=== PATIENT | female | born 1960 | race Caucasian/White ===

== ENCOUNTER 2016-03-29 09:40 | Outpatient (CLI) | payer MEDICARE, OTHER ==
[2013-12-02 09:34] VITALS: BP 148/62
[2016-03-29 10:43] LABS: BASOPHILS % 0.6 (0.0-1.5); EOSINOPHILS % 3.6 % (0.0-6.8); MEAN CORPUSCULAR HEMOGLOBIN 32.6 pg (28.0-34.0); MONOCYTES # 0.3 # k/uL (0.0-0.9); MONOCYTES % 3.8 % (0.0-11.0); NEUTROPHILS # 5.2 # k/uL (1.4-7.7)
--- NOTE | 2016-03-29 11:17 | Diagnostic Imaging Report ---
[facility] [address] [facility] [place], [place]. [address] Report Submission Date: Mar 29, 2016 10:57:24 AM ASSOCIATE WEB DEVELOPER Patient Study Name: RUPESH TORO Date: Mar 29, 2016 10:42:10 AM ASSOCIATE WEB DEVELOPER Modality Type: CR Gender: F Description: CHEST : 58 Institution: [facility] Physician: MEGAN CASTILLO 2 views of the chest History: DIFFICULTY BREATHING X 3 WEEKS. SMOKER FOR 40 YEARS Findings: No comparison studies Heart is normal in size. Aortic calcification is present. Lungs are hyperexpanded. Basilar predominant prominent interstitial lung markings are seen. Opacity noted in the posterior lung field infrahilar region on the lateral view , unclear if of vascular origin, no pleural effusion or pneumothorax. No acute osseous pathology, multilevel thoracic spine degenerative changes Impression: 1. Emphysema. Basilar predominant chronic interstitial lung changes. No pleural effusion 2. Opacity noted in the posterior lung field infrahilar region on the lateral view, unclear if related to pulmonary vessels versus air space opacity. Recommend attention on followup. Cross-sectional imaging may be done. Electronically signed on Mar 29, 2016 10:57:24 AM ASSOCIATE WEB DEVELOPER by: Mary KANG
== END 2016-03-29 09:42 ==
LOC: RT 09:40
PROVIDERS: ATTEND Family Medicine
DX: R06.02 Shortness of breath (principal); F17.210 Nicotine dependence, cigarettes, uncomplicated; E78.2 Mixed hyperlipidemia; E03.9 Hypothyroidism, unspecified; R07.2 Precordial pain
CPT/HCPCS: 36415; 71020; 80061; 84443; 85025; 94060

== ENCOUNTER 2016-04-01 09:59 | Outpatient (CLI) | payer MEDICARE, OTHER ==
[2013-12-02 09:34] VITALS: BP 148/62
[2016-04-01 10:33] LABS: eGFR (African) > 60; eGFR (Non-African) > 60
--- NOTE | 2016-04-01 18:33 | Diagnostic Imaging Report ---
[facility] [address] [facility].[address] [address] Report Submission Date: Apr 01, 2016 4:07:57 PM HANDLE ATTACHER Patient Study Name: RUPESH TORO Date: Apr 01, 2016 11:00:31 AM HANDLE ATTACHER Modality Type: CT\SR Gender: F Description: CT CHEST W/ CONTRAST : 58 Institution: [facility] Physician: MEGAN CASTILLO MD CT chest with contrast. History: Abnormal chest radiograph followup. Technique: Transaxial computed tomography images of the chest were obtained following the uneventful administration intravenous contrast according to standard protocol. Findings: The heart size is normal. The enhanced vascular structures are normal in course and caliber. There is no significant adenopathy identified. Minimal apical blebs are present. Otherwise the lungs are clear. There is no pleural effusion or pneumothorax. No suspicious pulmonary nodule is identified. Limited views the upper abdomen demonstrate cholecystectomy changes. Degenerative are present within the thoracic spine with chronic wedging deformity at L1. There is fusion of the posterior spinal processes in the lower thoracic spine into the upper lumbar spine. Impression: 1. No acute pulmanry disease. 2. No suspicious pulmonary nodule. 3. Minimal apical blebs noted. 4. Chronic wedge deformity at L1. Electronically signed on Apr 01, 2016 4:07:57 PM HANDLE ATTACHER by: Matheus KANG
== END 2016-04-01 10:00 ==
LOC: RAD 09:59
PROVIDERS: ATTEND Family Medicine
DX: R91.8 Other nonspecific abnormal finding of lung field (principal)
CPT/HCPCS: 36415; 71260; 82565

== ENCOUNTER 2016-05-24 10:58 | Outpatient (CLI) | payer MEDICARE, OTHER ==
[2013-12-02 09:34] VITALS: BP 148/62
[2016-05-24 12:19] LABS: ABG BASE EXCESS 6.4 (-2 - +2); ABG PH 7.45 (7.35-7.45)
--- NOTE | 2016-05-24 16:03 | CONSULTATION REPORT ---
PULMONARY CONSULTATION NOTE REFERRING PHYSICIAN: Shanice Gardiner MD CONSULTING PHYSICIAN: Sacha Tiwari MD REASON FOR CONSULT: 1. Shortness of breath. 2. Chronic obstructive pulmonary disease (COPD). PROBLEM LIST: 1. Moderate obstructive lung disease with significant chronic obstructive pulmonary disease (COPD) and a significant history of tobacco abuse with FEV1 of 1.9 L, which is 71% predicted. 2. Chronic hypoxic hypercapnic respiratory failure with pCO2 of 45 and pO2 of 60 on today's blood gas. 3. Obstructive sleep apnea, on home CPAP, but poor compliance. 4. Ongoing tobacco abuse. 5. Deconditioning with significant spinal disease and previous multiple surgeries. HISTORY OF PRESENT ILLNESS: Jodie is a pleasant 55-year-old lady who has ongoing tobacco abuse with more than a [id number] history. She has had increasing shortness of breath, chest tightness and a worsening condition over the last few weeks. Dr. Gardiner diagnosed her with significant COPD. A CAT scan confirmed significant emphysema. She continues to smoke around 1 pack per day. She does have excessive shortness of breath when walking or lying down. She does have palpitations. She does have a productive cough of yellow sputum with an episode of wheezing and some episode of pleurisy but she denies any coughing up of blood and no active chest pain. She does have daytime sleepiness, episode of sweats, and vision changes, and she gets hoarse with episodes of wheezing , sinus drainage, muscle weakness, and dry skin. She stopped using her CPAP in the last few weeks and she has had the CPAP since 2009 and usually she gets her studies done at [facility]. PAST MEDICAL HISTORY: 1. Osteoarthritis. 2. Hypertension. 3. COPD. 4. Neuropathy. 5. Depression. MEDICATIONS: 1. Flovent 2 puffs twice a day. 2. Celebrex 200 mg once a day. 3. Inderal 180 mg once a day. 4. Lyrica 100 mg twice a day. 5. Amitriptyline 25 mg 3 times a day. 6. Zoloft once a day. 7. Lasix p.r.n. SOCIAL HISTORY: Patient is on disability regarding her back issues. She does continue to smoke 1 pack per day. She is not . She has had no significant chemical exposure before. FAMILY HISTORY: No family history of lung disease but there is a family history of heart disease in her brother and sister. IMMUNIZATIONS: She did have a Pneumonia shot back in April 2016. REVIEW OF SYSTEMS: A total 12-point review of systems was done and positive only for that listed above in the history of present illness. PHYSICAL EXAMINATION: Vital Signs: Oxygen saturation is 90% on room air, T: 97.4, R: 20, heart rate 83, BP: 147/98. General: She is alert, awake, and oriented. She is chronically ill appearing. She has a painful gait related to her spinal disease. Neck: Her trachea is midline. Lungs: Poor entry bilaterally with a prolonged expiratory phase with use of accessory muscles. Heart: Regular rate and rhythm. No extra sounds. Abdomen: Soft and nontender. Neurologic Exam: Grossly intact. BLOOD WORKUP: ABG showed a pH of 7.45, pCO2 of 45, pO2 of 60 and bicarb of 31. Her pulmonary function test showed FEV1 of 1.9 L which is 71% predicted and with a second attempt, it was down to 68%, which is 1.87. Confirmed with the obstructive lung disease. RADIOLOGY: CT scan of the chest showed no lung nodules significant severe emphysema. ASSESSMENT: 1. Moderate obstructive lung disease with significant chronic obstructive pulmonary disease (COPD) and a significant history of tobacco abuse with FEV1 of 1.9 L, which is 71% predicted. 2. Chronic hypoxic hypercapnic respiratory failure with pCO2 of 45 and pO2 of 60 on today's blood gas. 3. Obstructive sleep apnea, on home CPAP, but poor compliance. 4. Ongoing tobacco abuse. 5. Deconditioning with significant spinal disease and previous multiple surgeries. PLAN: For the patient's moderate to severe COPD and chronic hypoxic hypercapnic respiratory failure, I am going to start the patient on Spiriva 2.5 mcg two puffs once a day and Breo 200 mcg one puff once a day. Discontinue Flovent for now. I will do a home oxygen evaluation with a nocturnal study while patient off CPAP and request a repeat CPAP titration study from [facility]. I had an excessive discussion with the patient about the importance for her to quit smoking and she is going to follow up with me in the Pulmonary Clinic in one month. The patient's condition is serious with this advanced lung disease with ongoing tobacco abuse and significant sleep apnea and she is not compliant with her CPAP which I advised her to go back to the CPAP until we get the re- titration study and at least for now, we are going to use oxygen at night at 2 liters. Thank you, Dr. Gardiner, for the consultation. I will continue to follow up. cc: Dr. Shanice KANG
== END 2016-05-24 11:00 ==
LOC: PULMONARY 10:58
PROVIDERS: ATTEND Internal Medicine Critical Care Medicine
DX: J44.9 Chronic obstructive pulmonary disease, unspecified (principal); I10 Essential (primary) hypertension; F17.210 Nicotine dependence, cigarettes, uncomplicated
CPT/HCPCS: 36600; 82803; 94761; 99214; G0463

== ENCOUNTER 2016-06-17 08:08 | Outpatient (CLI) | payer MEDICARE, OTHER ==
[2013-12-02 09:34] VITALS: BP 148/62
--- NOTE | 2016-06-20 13:42 | OP Clinic Progress Note ---
REFERRING PHYSICIAN: Dr. Shanice Gardiner PROBLEM LIST: 1. Moderate to severe obstructive lung disease, FEV1 of 1.9 liters. 2. Chronic hypoxic hypercapnic respiratory failure. 3. Obstructive sleep apnea, on home CPAP with poor compliance. 4. Ongoing tobacco abuse. SUBJECTIVE: Patient was seen and examined in the clinic today. She is feeling better than at her last visit. She reports that she did quit smoking since her last visit and feeling much better in general. She is not using her home CPAP yet and using her nebulizer and breathing better in general and using Spiriva and Breo on a regular basis. Her past medical history, family history, and social history were reviewed in the chart with no significant changes. Her oxygen saturation study from May 26, 2016, showed hypoxia at night with oxygen saturation less than 88% was more than 5 minutes. PHYSICAL EXAMINATION: VITAL SIGNS: Weight: 226. T: 97.6, R: 20, heart rate is 65, oxygen saturation is 95%, BP: 134/62. GENERAL: Patient is alert, awake, and oriented and chronically ill-appearing. LUNGS: Lungs continue to have poor air entry bilaterally but no wheezing and no crackles. No use of accessory muscles. HEART: Regular rate and rhythm. ABDOMEN: Soft. No tenderness. NEUROLOGIC EXAM: Grossly intact. SKIN: Unremarkable. ASSESSMENT: 1. Moderate to severe obstructive lung disease, FEV1 of 1.9 liters. 2. Chronic hypoxic hypercapnic respiratory failure. 3. Obstructive sleep apnea, on home CPAP with poor compliance. 4. Ongoing tobacco abuse. PLAN: Patient does have chronic hypoxic respiratory failure. She would benefit from oxygen as needed to keep her saturations more than 88% and to use oxygen at night. The problem is that she is on a CPAP and we are going to have to request another home CPAP titration with oxygen to be done at the [facility]. I did send the request again to the [facility] and hopefully , it will be done soon. Otherwise, she did quit smoking. I highly recommend continuing Breo and Spiriva for now and to consider pulmonary rehab. Patient's prognosis is guarded. Pulmonary will continue to follow up within the next 3 months. cc: Dr. Shanice KANG
== END 2016-06-17 08:10 ==
LOC: PULMONARY 08:08
PROVIDERS: ATTEND Internal Medicine Critical Care Medicine
DX: J44.9 Chronic obstructive pulmonary disease, unspecified (principal); J96.12 Chronic respiratory failure with hypercapnia; F17.210 Nicotine dependence, cigarettes, uncomplicated; G47.33 Obstructive sleep apnea (adult) (pediatric)
CPT/HCPCS: 99214; G0463

== ENCOUNTER 2016-12-11 20:41 | Emergency (ER) | payer MEDICARE, OTHER ==
[2016-12-11] MEDS ORDERED: IPRATROPIUM/ALBUTEROL SULFATE 3 ML AMPUL.NEB NEB ONE (21:01)
--- NOTE | 2016-12-11 21:01 | ED Physician Documentation ---
General Adult - HISTORIAN Historian: patient - HPI Stated Complaint: wheezing Chief Complaint: General Adult Onset: days ago Timing: still present Severity: moderate Further Comments: yes (Pt is a 56 yo female with COPD, dx'd about 6 mos ago. Pt is on Spiriva, Albuterol and Breo. Pt was seen in clinic 4 days ago and was rx'd prednisone 20 mg for 5 days. Pt continues to feel sob/wheezy.) - ROS CONST: no problems EYES/ENT: none CVS/RESP: shortness of breath, cough GI/: none MS/SKIN/LYMPH: none - PAST HX Past History: hypertension, other (Depression, GERD, HLD) Allergies/Adverse Reactions: Allergies Allergy/AdvReac Type Severity Reaction Status Date / Time erythromycin base Allergy Unknown Verified 12/11/16 21:40 [From E-Mycin] steroids AdvReac Severe Shortness Uncoded 12/11/16 21:40 of Breath - SOCIAL HX Smoking History: quit greater than 1 year - FAMILY HX Family History: No - VITAL SIGNS Vital Signs: Vital Signs Temp Pulse Resp BP Pulse Ox 148/62 12/02/13 09:33 - REVIEWED ASSESSMENTS Nursing Assessment Reviewed: Yes Vitals Reviewed: Yes Progress - Progress Progress: Duoneb HFN x 1 Pulmicort HFN x 1 Tylenol 650 mg po (for mild headache) improved, sx resolved Rx Flovent 110 mcg. 2 puffs bid x 3 days; then 1 puff bid x 3 days; then 1 puff qd x 3 days; then stop f/u pcp. General Adult Physical Exam - PHYSICAL EXAM GENERAL APPEARANCE: moderate distress EENT: pharynx normal NECK: normal inspection, supple RESPIRATORY: wheezes CVS: reg rate & rhythm, heart sounds normal ABDOMEN: soft, no organomegaly, normal bowel sounds BACK: normal inspection SKIN: warm/dry, normal color EXTREMITIES: non-tender, normal range of motion, no edema NEURO: oriented X3, motor nml, sensation nml Discharge Clincal Impression: wheezing Referrals: Shanice Gardiner MD [Primary Care Provider] - Condition: Good Disposition: 01 HOME, SELF-CARE Decision to Admit: NO Decision Time: 22:18
[2016-12-11 21:35] VITALS: BP 168/76
[2016-12-11] MEDS ORDERED: BUDESONIDE 0.5MG/2ML AMPUL.NEB NEB ONE (21:48)
[2016-12-11] MEDS ORDERED: BUDESONIDE 0.5MG/2ML AMPUL.NEB NEB SCH (22:00)
[2016-12-11] MEDS ORDERED: ACETAMINOPHEN 325 MG TABLET ONE (22:04)
--- NOTE | 2016-12-12 07:03 | Diagnostic Imaging Report ---
[place] [facility] [address] [facility].[address] [address] Report Submission Date: Dec 11, 2016 9:45:08 PM CDT Patient Study Name: RUPESH TORO Date: Dec 11, 2016 9:26:52 PM CDT Modality Type: CR Gender: F Description: CHEST : 58 Institution: [facility] Physician: D[place]CH [place] Chest 2 views History: Shortness of breath and cough for 1 week Findings: The distal right clavicle has been resected. A severe compression deformity at the thoracolumbar junction produces focal kyphosis and is unchanged since the March 29, 2016 exam. The lungs are mildly hyperinflated without infiltrate or pleural effusion. Heart size and pulmonary vascularity are normal. Impression: 1. Hyperinflation. 2. Chronic thoracolumbar junction compression deformity. 3. Distal right clavicle resection. 4. No change since the prior exam. Electronically signed on Dec 11, 2016 9:45:08 PM CDT by: Dread KANG
== END 2016-12-11 22:30 | disposition home or self-care (01) ==
LOC: ED 20:41
DX: R06.2 Wheezing (principal)
CPT/HCPCS: J7626 ×2; 71020; 99283

== ENCOUNTER 2017-03-28 12:40 | Emergency (ER) | payer MEDICARE, OTHER ==
--- NOTE | 2017-03-28 12:57 | ED Physician Documentation ---
General Adult - HISTORIAN Historian: patient - HPI Chief Complaint: General Adult Additional Information: Patient has some URI symptoms, nasal drainage, cough. Over the last several days symptoms have been getting worse, cough is productive of some yellow to clear phlegm. Hears a gurgling in the chest at times. Has been having some left anterior chest pain, no precipitating cause. Worse with coughing and taking a deep breath. Has been having some increase SOB. Has been using inhaler which helps some. Has a history of COD. No CAD. Has HTN. Denies smoking at this time. Onset: days ago (5 days) Timing: still present, worse - ROS CONST: denies: fever, chills - PAST HX Past History: COPD, other (fibromyalgia, HTN) Surgeries/Procedures: cholecystectomy, hysterectomy, other (lower back surgery, appendectomy) Immunizations: influenza, pneumovax Allergies/Adverse Reactions: Allergies Allergy/AdvReac Type Severity Reaction Status Date / Time erythromycin base Allergy Unknown Verified 03/28/17 13:07 [From E-Mycin] steroids AdvReac Severe Shortness Uncoded 03/28/17 13:07 of Breath Home Medications: Ambulatory Orders Medication Instructions Recorded Benzonatate [Tessalon] 100 mg PO TID #20 capsule 03/28/17 Doxycycline Monohydrate [Monodox] 100 mg PO BID #14 capsule 03/28/17 - SOCIAL HX Smoking History: non-smoker, quit less than 1 year Alcohol Use: none Drug Use: none - FAMILY HX Family History: Yes - VITAL SIGNS Vital Signs: Vital Signs Temp Pulse Resp BP Pulse Ox 168/76 12/11/16 22:30 Progress - Progress Progress: 13:56 Patient still complains of some pain in the left chest with deep breathing and coughing. 14:29 Patient is feeling a little better. Continues to maintain SAO2 > 95% on RA. BP has been elevated some but is improved. 15:35 Neb treatment helped some. Patient is feeling some better. No chest pain. - EKG/XRAY/CT EKG: NSR, no ST T wave changes ED Results Lab/Radiology - Radiology Radiology Impressions: Examination: PA and lateral chest. History: Evaluate lung chow. Comparison exam: 11 December 2016 Findings: PA lateral chest demonstrate a normal cardiac and mediastinal silhouette. Vascular calcifications involving the aortic arch. No focal infiltrate. No blunting of the costophrenic margins. lower thoracic anterior compression: stable. Impression: No acute appearing pulmonary process. Examination: CT chest pulmonary embolism History: Chest discomfort. Comparison exam: Plain film dated [address] scan dated 01 April 2016 Technique: CT chest pulmonic pulmonary embolism protocol. Findings: No evidence for luminal filling defect within the main pulmonary arteries to the 3rd order branch vessels bilaterally. Thoracic aorta without aneurysmal dilation. No evidence for dissection flap. Mild peripheral atherosclerotic disease and mural thickening. Lungs demonstrate dependent atelectasis bilaterally. No evidence for posterior pleural effusion or thickening. Scattered emphysematous changes. Groundglass interstitial pattern. No mediastinal or lavonne mass or pathologic adenopathy. Cardiac silhouette not enlarged. No pericardial effusion. Osseous structures demonstrate degenerative changes and old lower thoracic anterior vertebral body compression. Lower neck structures, axilla regions, and upper abdominal organs are without gross irregularity. Impression: No evidence for pulmonary embolism by CT criteria. No evidence for thoracic aortic dissection or abnormality. General Adult Physical Exam - PHYSICAL EXAM GENERAL APPEARANCE: mild distress EENT: eye inspection normal, ENT inspection normal, pharynx normal, no signs of dehydration NECK: normal inspection, thyroid normal, supple. No: lymphadenopathy, stiff neck RESPIRATORY: no resp distress, breath sounds normal. No: chest non-tender ( some mild anterior left chest wall tenderness with palpation.), wheezes, rales, rhonchi CVS: reg rate & rhythm, heart sounds normal, equal pulses, no murmur, no gallop ABDOMEN: soft, no organomegaly, normal bowel sounds, no abdominal bruit, no distension SKIN: warm/dry, normal color EXTREMITIES: non-tender, no edema NEURO: oriented X3, CN's nml as tested, motor nml, sensation nml, mood/affect nml, cognition normal Discharge Clincal Impression: Bronchitis, Pleurisy without effusion, Essential hypertension Referrals: Shanice Gardiner MD [Primary Care Provider] - 2 Days Additional Instructions: Take doxycycline 100mg twice a day for seven days. Take tessalon Perles as needed for cough. Start taking 160mg of your atenolol once again. Make an appointment to see Dr Gardiner in 1-2 weeks to have your blood pressure rechecked. Take Alevel 220mg tablets, 2 tablets twice a day with food for chest wall pain. Condition: Stable Disposition: 01 HOME, SELF-CARE Decision to Admit: NO Date of Decison to Admit: 03/28/17 Decision Time: 15:23
[2017-03-28 13:38] LABS: BASOPHILS % 1.1 (0.0-1.5); EOSINOPHILS % 2.7 % (0.0-6.8); MEAN CORPUSCULAR VOLUME 93.2 fl (80.0-100.0); MONOCYTES % 5.4 % (0.0-11.0); NEUTROPHILS # 4.8 # k/uL (1.4-7.7)
--- NOTE | 2017-03-28 13:46 | Diagnostic Imaging Report ---
CHILO RUIZ [facility] [address] [facility] [address] [address] Report Submission Date: Mar 28, 2017 1:27:02 PM SUPERVISOR HIDE HOUSE Patient Study Name: RUPESH TORO Date: Mar 28, 2017 1:08:35 PM SUPERVISOR HIDE HOUSE Modality Type: CR Gender: F Description: CHEST : 58 Institution: [facility] Physician: CHILO RUIZ Examination: PA and lateral chest. History: Evaluate lung chow. Comparison exam: 11 December 2016 Findings: PA lateral chest demonstrate a normal cardiac and mediastinal silhouette. Vascular calcifications involving the aortic arch. No focal infiltrate. No blunting of the costophrenic margins. lower thoracic anterior compression: stable. Impression: No acute appearing pulmonary process. Electronically signed on Mar 28, 2017 1:27:02 PM SUPERVISOR HIDE HOUSE by: Mitch KANG
[2017-03-28 14:00] LABS: eGFR (African) > 60; eGFR (Non-African) > 60
[2017-03-28] MEDS ORDERED: IPRATROPIUM/ALBUTEROL SULFATE 3 ML AMPUL.NEB NEB ONE (14:21)
--- NOTE | 2017-03-28 15:01 | Diagnostic Imaging Report ---
CHILO RUIZ [facility] [address] [facility] [address] [place] [address]. [id number] Report Submission Date: Mar 28, 2017 2:57:[address] REPORTER Patient Study Name: RUPESH TORO Date: Mar 28, 2017 2:28:[address] REPORTER Modality Type: CT\SR Gender: F Description: CT ANGIOGRAPHY CHEST 7 : 58 Institution: [facility] Physician: CHILO RUIZ Examination: CT chest pulmonary embolism History: Chest discomfort. Comparison exam: Plain film dated [address] scan dated 01 April 2016 Technique: CT chest pulmonic pulmonary embolism protocol. Findings: No evidence for luminal filling defect within the main pulmonary arteries to the 3rd order branch vessels bilaterally. Thoracic aorta without aneurysmal dilation. No evidence for dissection flap. Mild peripheral atherosclerotic disease and mural thickening. Lungs demonstrate dependent atelectasis bilaterally. No evidence for posterior pleural effusion or thickening. Scattered emphysematous changes. Groundglass interstitial pattern. No mediastinal or lavonne mass or pathologic adenopathy. Cardiac silhouette not enlarged. No pericardial effusion. Osseous structures demonstrate degenerative changes and old lower thoracic anterior vertebral body compression. Lower neck structures, axilla regions, and upper abdominal organs are without gross irregularity. Impression: No evidence for pulmonary embolism by CT criteria. No evidence for thoracic aortic dissection or abnormality. Groundglass interstitial pattern without effusion. Electronically signed on Mar 28, 2017 2:57:[address] REPORTER by: Mitch KANG
[2017-03-28 15:42] VITALS: BP 183/100
[2017-03-29 07:26] LABS: APPEARANCE,URINE CLEAR (CLEAR); COLOR,URINE YELLOW (YELLOW); OCCULT BLOOD,URINE NEGATIVE (NEGATIVE); UROBILINOGEN URINE 0.2 Eu (0.2-1.0)
== END 2017-03-28 15:41 | disposition home or self-care (01) ==
LOC: ED 12:40
DX: J40 Bronchitis, not specified as acute or chronic (principal); R09.1 Pleurisy; J44.9 Chronic obstructive pulmonary disease, unspecified; I10 Essential (primary) hypertension
CPT/HCPCS: 71020; 71275; 80053; 81002; 84484; 85025; 85379; 94640; 99282; 99283; Q9967; S1016

== ENCOUNTER 2017-06-29 09:50 | Emergency (ER) | payer MEDICARE, OTHER ==
[2017-06-29] MEDS ORDERED: ASPIRIN 81 MG CHEW TAB PO ONE (10:19)
[2017-06-29] MEDS ORDERED: NITROGLYCERIN 0.4 MG TAB.SUBL SL ONE (10:22)
--- NOTE | 2017-06-29 10:22 | ED Physician Documentation ---
General Adult - HISTORIAN Historian: patient - HPI Stated Complaint: s/p mild chest pain radiating up into neck/back Chief Complaint: General Adult Onset: hours Timing: still present Severity: moderate Further Comments: yes (Pt is a 56 yo female with chest pain that occurred this morning and lasted 45 min. Pain was 7/10 in severity. Pt has COPD and did not have any increased sob. No n/v. Pain radiated to neck and later to L arm and L side of chest. Pt has hx GERD. Pt took TUMS w/o relief.) - ROS CONST: no problems EYES/ENT: none CVS/RESP: chest pain, shortness of breath (hx COPD, not worse than usual.) GI/: none MS/SKIN/LYMPH: none - PAST HX Past History: COPD, other (YUDI, OA, HTN, Neuropathy, Depression, HLD, GERD, fibromyalgia.) Surgeries/Procedures: cholecystectomy, hysterectomy, other (back surgery) Allergies/Adverse Reactions: Allergies Allergy/AdvReac Type Severity Reaction Status Date / Time erythromycin base Allergy Unknown Verified 06/29/17 10:20 [From E-Mycin] steroids AdvReac Severe Shortness Uncoded 06/29/17 10:20 of Breath Home Medications: Ambulatory Orders Medication Instructions Recorded Benzonatate [Tessalon] 100 mg PO TID #20 capsule 03/28/17 Doxycycline Monohydrate [Monodox] 100 mg PO BID #14 capsule 03/28/17 - SOCIAL HX Smoking History: cigarettes (e-cigarettes) - FAMILY HX Family History: No - VITAL SIGNS Vital Signs: Vital Signs Temp Pulse Resp BP Pulse Ox 98.2 F 61 16 147/67 98 06/29/17 09:50 06/29/17 09:50 06/29/17 09:50 06/29/17 09:50 06/29/17 09:50 - REVIEWED ASSESSMENTS Nursing Assessment Reviewed: Yes Vitals Reviewed: Yes Progress - Progress Progress: ASA 325 mg po Nitro 0.4 mg SL no change GI cocktail no change Pain later resolved. Planned to admit pt to r/o [place]. Pt initially agreed, then decided that she needed to leave and signed out AMA. - EKG/XRAY/CT EKG: NSR (HR=61; non-specific ST & T wave abnormality.) XRAY: chest (neg) ED Results Lab/Radiology - Orders Orders: ED Orders Category Date Time Status Continuous EKG monitoring Q30M Care 06/29/17 10:19 Active Continuous Pulse Oximetry Q30M Care 06/29/17 10:[address] IV Lock 1T Care 06/29/17 10:19 Active CHEST 1VIEW [RAD] Stat Exams 06/29/17 Ordered CBC/PLATELET/DIFF Routine Lab 06/29/17 10:19 Ordered CKMB Stat Lab 06/29/17 Ordered CMP Routine Lab 06/29/17 10:19 Ordered CREATINE KINASE Routine Lab 06/29/17 10:19 Ordered D DIMER Stat Lab 06/29/17 Ordered NT-proBNP Stat Lab 06/29/17 Ordered TROPONIN I (cTnI) Stat Lab 06/29/17 Ordered Aspirin Med 06/29/17 10:19 Discontinued 324 mg PO NOW ONE Oxygen Daily Oxygen 06/29/17 10:30 Ordered EKG WITH COMPARISON Stat Ther 06/29/17 10:19 Ordered General Adult Physical Exam - PHYSICAL EXAM GENERAL APPEARANCE: mild distress EENT: pharynx normal NECK: normal inspection, supple RESPIRATORY: no resp distress, chest non-tender, breath sounds normal CVS: reg rate & rhythm, heart sounds normal, no murmur ABDOMEN: soft, no organomegaly, normal bowel sounds BACK: normal inspection, no CVA tenderness SKIN: warm/dry, normal color EXTREMITIES: non-tender, normal range of motion, no evidence of injury, no edema NEURO: oriented X3, motor nml, sensation nml Discharge Clincal Impression: chest pain Referrals: Shanice Gardiner MD [Primary Care Provider] - Condition: Fair Disposition: 07 AGAINST MEDICAL ADVICE Decision to Admit: NO Decision Time: 13:13
[2017-06-29 10:40] LABS: BASOPHILS % 0.6 (0.0-1.5); EOSINOPHILS % 2.2 % (0.0-6.8); MEAN CORPUSCULAR HEMOGLOBIN 31.9 pg (28.0-34.0); MEAN CORPUSCULAR VOLUME 93.2 fl (80.0-100.0); MONOCYTES % 4.6 % (0.0-11.0); NEUTROPHILS # 4.5 # k/uL (1.4-7.7)
[2017-06-29] MEDS ORDERED: MAGNESIUM, ALUMINUM HYDROXIDE 30 ML UDC PO ONE (10:52)
[2017-06-29] MEDS ORDERED: Lidocaine 2%Visc 15ml 20 MG/ML UDC ONE (10:52)
[2017-06-29] MEDS ORDERED: MAG HYDROX/ALUMINUM HYD/SIMETH 30 ML, Lidocaine 2%Visc 15ml 20 MG, PHENobarb/HYOSCY/ATR... PO ONE ×3 (10:53)
[2017-06-29 10:56] LABS: eGFR (African) > 60; eGFR (Non-African) > 60
[2017-06-29 14:06] VITALS: BP 146/73
--- NOTE | 2017-06-30 07:11 | Diagnostic Imaging Report ---
[place] [facility] [address] [facility] [address] [address] Report Submission Date: Jun 29, 2017 10:47:13 AM CDT Patient Study Name: RUPESH TORO Date: Jun 29, 2017 10:33:00 AM CDT Modality Type: DX Gender: F Description: CHEST : 58 Institution: [facility] Physician: [place] Examination: Portable chest History: Evaluate lungs. PCXR, CHEST PAIN AND PRESSURE TODAY (Hx) Comparison exam: 11 December 2016 Findings: Single view of the chest demonstrates a normal cardiac and mediastinal silhouette. Vascular calcifications involving the aortic arch. Lung chow without focal infiltrate. No blunting of the costophrenic margins. Articular degenerative changes. Impression: No acute pulmonary process. Electronically signed on Jun 29, 2017 10:47:13 AM CDT by: Mitch KANG
== END 2017-06-29 13:00 | disposition left against medical advice (07) ==
LOC: ED 09:50
DX: R07.9 Chest pain, unspecified (principal)
CPT/HCPCS: 71045; 80053; 82550; 82553; 83880; 84484; 85025; 85379; A9270; 99283; S1016

== ENCOUNTER 2017-11-15 11:13 | Outpatient (CLI) | payer MEDICARE, OTHER | END 2017-11-15 11:14 | LOC: LABRHC 11:13 | PROVIDERS: ATTEND Family Medicine | DX: R39.198 Other difficulties with micturition (principal) | CPT/HCPCS: 87086 ==

== ENCOUNTER 2017-12-04 10:49 | Day surgery (SDC) | payer MEDICARE, OTHER ==
[~2017-12-04 10:49] MED LIST: LACTATED RINGERS 1,000 ML IV.SOLN IV ONE; PROPOFOL 500 MG/50 ML VIAL IV ONE; SALINE FLUSH 10 ML DISP.SYRIN IVF ONE
--- NOTE | 2017-12-05 11:59 | GI Report ---
REFERRING PHYSICIAN: Dr. Shanice Gardiner JOB SUPERINTENDENT: Stuart Hagen MD PROCEDURE MEDICATION: Propofol as per anesthesia. INDICATIONS: Patient is a 57-year-old woman who has had a change in her bowel habits. She has had increasing constipation. She takes a laxative. She denies blood with her stool. She has metabolic syndrome. She has some chronic lung disease and is on inhalers and is still using vapor tobacco. Her weight is 109 kilograms and carries that centrally. She is on a whole group of medications including Lyrica, Celebrex, atorvastatin, amitriptyline, and some breathing medications. PROCEDURE PERFORMED: Colonoscopy and polypectomy. PROCEDURE: An Olympus video colonoscope was advanced to the rectum. A very atonic redundant colon. It took some nurse compression to reach the cecum. She has evidence of melanosis coli. The appendiceal orifice and ileocecal valve were normal. On slow withdrawal, the cecum and ascending colon with no obvious intraluminal lesions noted, though the prep was only fair. We did have to lavage to improve or clear the prep. The descending colon and sigmoid had redundancy. Between 15 cm and 40 cm in the sigmoid, 2 hyperplastic-appearing polyps were removed and submitted to pathology. Retroflexion of the rectum was otherwise normal. Patient tolerated the procedure well. FINDINGS: 1. A very atonic redundant colon. 2. Melanosis coli. 3. Sigmoid polyps removed. RECOMMENDATIONS: 1. Would add MiraLAX daily. 2. Increase fiber in her diet. 3. Cut back on calories. 4. I recommend she discontinue vapor tobacco use. 5. She is to follow up with Dr. Gardiner. 6. Pending the pathology of the polyp, she may need her colon re-looked again within 5 years. cc: Dr. Shanice KANG
== END 2017-12-04 10:51 ==
LOC: OPSURG 10:49
PROVIDERS: ATTEND Internal Medicine Gastroenterology
DX: K63.5 Polyp of colon (principal); D12.5 Benign neoplasm of sigmoid colon; R19.4 Change in bowel habit; K63.89 Other specified diseases of intestine; K59.8 Other specified functional intestinal disorders; K31.9 Disease of stomach and duodenum, unspecified
CPT/HCPCS: 45385; 88305; J2704; J7120; S1016

== ENCOUNTER 2019-02-05 13:20 | Outpatient (CLI) | payer MEDICARE, OTHER ==
[2019-02-05 14:36] LABS: eGFR (Non-African) > 60
[2019-02-05 14:37] LABS: HDL 57 mg/dL (>40)
== END 2019-02-05 13:25 ==
LOC: LAB 13:20
PROVIDERS: ATTEND Family Medicine
DX: E78.2 Mixed hyperlipidemia (principal); E03.9 Hypothyroidism, unspecified; M79.643 Pain in unspecified hand
CPT/HCPCS: 36415; 80053; 80061; 84443